=== PATIENT | male | born 1955 | race Caucasian/White ===

== ENCOUNTER → 2025-02-07 | Outpatient (CLI) | payer MEDICARE ==
[~2025-02-07] MED LIST: ALBUTEROL SULFATE HF; DILT-XR120 MG PO; FUROSEMIDE40 MG PO; HUMALOG 751 UNIT/0.0 SQ; HYDROCHLOROTHIA50 M1 PO; METFORMIN HYD1000 MG PO; MONTELUKAST SOD10 MG PO; THEOPHYLLINE300 M2 PO; ZETIA10 MG PO
== END | disposition home or self-care (01) ==
LOC: LAB 16:35
PROVIDERS: ATTEND Internal Medicine
DX: R06.02 Shortness of breath (principal)

== ENCOUNTER → 2025-02-08 | Outpatient (CLI) | payer MEDICARE ==
[2025-02-08 14:35] LABS: HEMATOCRIT 39.9 % (42.0-52.0); MEAN CELL VOLUME 85.1 fl (80.0-94.0); MEAN CORPUSCULAR HGB 28.6 pg (27.0-31.0); MEAN CORPUSCULAR HGB CONC 33.6 g/dl (33.0-37.0); MEAN PLATELET VOLUME 10.6 fl (9.6-12.3); PLATELET COUNT AUTOMATED 331 10*3/uL (130-400); RED BLOOD COUNT 4.69 10*6/uL (4.50-5.90); RED CELL DISTRI WIDTH 14.7 % (0-14.5); WHITE BLOOD COUNT 18.7 10*3/uL (4.8-10.8)
[2025-02-08 14:37] LABS: MANUAL DIFF REFLEX YES
[2025-02-08 14:58] LABS: PLATELET SUFFICIENCY NORMAL (NORMAL); TOTAL CELLS COUNTED 100 #CELLS
[2025-02-08 14:59] LABS: OVALOCYTES FEW
[2025-02-08 15:13] LABS: FREE T4 1.42 ng/dl (0.89-1.76); POTASSIUM 3.4 mmol/L (3.4-5.1); TOTAL PROTEIN 6.9 gm/dL (6.0-8.0)
== END | disposition home or self-care (01) ==
LOC: LAB 14:03
PROVIDERS: ATTEND Internal Medicine
DX: R79.89 Other specified abnormal findings of blood chemistry (principal)